=== PATIENT | female | born 1935 | race Caucasian/White ===

== ENCOUNTER 2024-02-20 09:44 | Emergency (ER) | payer OTHER ==
[~2024-02-20] VITALS: Ht 162.5 cm; Wt 56.2 kg
[2024-02-20] MEDS ORDERED: NORVASC2.5 MG PO ×2 (09:49→09:51)
[2024-02-20] MEDS ORDERED: ELIQUIS2.5 M1 PO (09:52)
[2024-02-20] MEDS ORDERED: ATIVAN0.5 MG PO (09:53)
[2024-02-20] MEDS ORDERED: NATURE'S BLEND F1 MG PO (09:53)
[2024-02-20] MEDS ORDERED: PREDNISONE10 MG PO (09:54)
[2024-02-20] MEDS ORDERED: Synthroid,Levo50 MCG PO (09:54)
[2024-02-20] MEDS ORDERED: PROTONIX40 MG PO (09:54)
[2024-02-20 10:09] LABS: HEMATOCRIT 22.5 % (37.0-47.0); MEAN CORPUSCULAR HGB 29.8 pg (27.0-31.0); MEAN CORPUSCULAR HGB CONC 29.8 g/dl (33.0-37.0); MEAN PLATELET VOLUME 9.5 fl (9.6-12.3); PLATELET COUNT AUTOMATED 269 10*3/uL (130-400); RED BLOOD COUNT 2.25 10*6/uL (4.10-5.10); RED CELL DISTRI WIDTH 16.5 % (0-14.5); WHITE BLOOD COUNT 12.6 10*3/uL (4.8-10.8)
[2024-02-20 10:12] LABS: MANUAL DIFF REFLEX YES
[2024-02-20 10:27] LABS: OVALOCYTES FEW; POLYCHROMASIA SLIGHT; TOTAL CELLS COUNTED 100 #CELLS
[2024-02-20 10:28] LABS: PLATELET SUFFICIENCY NORMAL (NORMAL)
[2024-02-20 10:29] LABS: ALKALINE PHOSPHATASE 59 U/L (46-116); BUN 65 mg/dl (9-23); CHLORIDE 102 mmol/L (98-107); LIPASE 92 U/L (12-53); POTASSIUM 4.2 mmol/L (3.4-5.1); TOTAL PROTEIN 5.9 gm/dL (6.0-8.0)
[2024-02-20 10:35] LABS: SGPT/ALT < 7 U/L (5-49)
[2024-02-20] MEDS ORDERED: SODIUM CHLORIDE 0.9% 500 ML IV ONE (11:07)
[2024-02-20 11:32] VITALS: BP 151/83
[2024-02-20 12:08] VITALS: BP 155/83
[2024-02-20 12:57] VITALS: BP 158/82
[2024-02-20 13:44] VITALS: BP 161/85
[2024-02-20 14:43] LABS: BASO % 0.2 % (0.0-1.0); HEMATOCRIT 27.7 % (37.0-47.0); LYMPH # 1.3 10*3/uL (1.3-4.4); LYMPH % 10.6 % (27.0-41.0); MEAN CELL VOLUME 98.2 fl (81.0-99.0); MEAN CORPUSCULAR HGB 30.5 pg (27.0-31.0); MEAN PLATELET VOLUME 9.4 fl (9.6-12.3); MONO # 0.2 10*3/uL (0.1-1.0); MONO % 1.6 % (3.0-9.0); NEUT # 10.5 10*3/uL (2.3-7.9); NEUT % 87.2 % (47.0-73.0); PLATELET COUNT AUTOMATED 271 10*3/uL (130-400); RED BLOOD COUNT 2.82 10*6/uL (4.10-5.10); RED CELL DISTRI WIDTH 16.2 % (0-14.5)
== END 2024-02-20 15:30 ==
LOC: ED 09:44
PROVIDERS: Internal Medicine
DX: D64.9 Anemia, unspecified (principal); K21.9 Gastro-esophageal reflux disease without esophagitis; Z88.0 Allergy status to penicillin; Z88.8 Allergy status to other drugs, medicaments and biological substances